=== PATIENT | male | born 1985 | race Caucasian/White ===

== ENCOUNTER 2018-11-30 09:14 | Observation (INO) | payer OTHER ==
[~2018-11-30] VITALS: Ht 182.9 cm; Wt 86.2 kg
[~2018-11-30 09:14] MED LIST: AMOX500 PO; CLON.1 PO; CLON.2; CLON.2 PO; CLON.2TP; CLON.5 PO; CLON1 PO; CYCL10 PO; DIAZ5 PO; HYDACE5 PO; HYDPAM25 PO; IBUP600 PO; IBUP800 PO; Klonopin0.5 MG PO; LORA.5 PO; LORA2 PO; NAPR500 PO; NIAC250ER PO; PENVK250 PO; PROM25 PO; QUET100 PO; QUET300 PO; RXCYCL10 PO; RXHYDACE PO; TRAM50 PO; TRAZ50 PO
[2018-11-30 10:34] LABS: BASOPHILS ABSOLUTE AUTO 0.08 K/mm3 (0.00-0.23); BASOPHILS PERCENT AUTO 1 % (0-2); EOSINOPHILS ABSOLUTE AUTO 0.21 K/mm3 (0.00-0.68); EOSINOPHILS PERCENT AUTO 3 % (0-6); Hematocrit 48.9 % (37.0-53.0); Hemoglobin 16.9 g/dL (13.5-17.5); IMMATURE GRAN ABSOLUTE AUTO 0.01 K/mm3 (0.00-0.10); IMMATURE GRAN PERCENT AUTO 0 % (0-1); LYMPHOCYTES ABSOLUTE AUTO 1.44 K/mm3 (0.84-5.20); LYMPHOCYTES PERCENT AUTO 23 % (21-46); MONOCYTES ABSOLUTE AUTO 0.57 K/mm3 (0.16-1.47); MONOCYTES PERCENT AUTO 9 % (4-13); Mean Corpuscular HGB 30.1 pg (26.0-34.0); Mean Corpuscular HGB Conc 34.6 g/dL (31.5-36.5); Mean Corpuscular Volume 87 fL (80-100); Mean Platelet Volume 11.1 fL (9.1-12.4); NEUTROPHILS ABSOLUTE AUTO 3.99 K/mm3 (1.96-9.15); NEUTROPHILS PERCENT AUTO 63 % (41-73); Platelet Count 205 K/mm3 (150-400); RDW Coefficient Variation 12.4 % (11.7-14.2); RDW Standard Deviation 38.7 fL (35.1-46.3); Red Blood Cell Count 5.62 M/mm3 (4.30-5.90)
[2018-11-30 10:58] LABS: Alanine Aminotransfer (ALT/SGP 42 U/L (12-78); Albumin, Blood 4.6 g/dL (3.4-5.0); Albumin/Globulin Ratio 1.4 (0.8-1.8); Alk Phos 83 U/L (50-136); Anion Gap 8 mmol/L (6-16); Aspartate Aminotrans (AST/SGOT 32 U/L (12-37); Bilirubin, Total 1.3 mg/dL (0.1-1.0); Blood Urea Nitrogen 23 mg/dL (8-24); Bun/Creatinine Ratio 19.8 (12.0-20.0); CO2, Blood 25 mmol/L (21-32); Calcium, Blood 9.1 mg/dL (8.5-10.1); Chloride, Blood 108 mmol/L (98-108); Creatinine, Blood 1.16 mg/dL (0.60-1.20); Ethanol (Alcohol), Blood, Med <3 mg/dL; Globulin, Blood 3.2 g/dL (2.2-4.0); Glomerular Filtration Rate >60 (60-); Glucose, Blood 85 mg/dL (70-99); Salicylate <1.7 mg/dL (2.8-20.0); Sodium, Blood 141 mmol/L (136-145); Total Protein, Blood 7.8 g/dL (6.4-8.2)
[2018-11-30 11:02] LABS: Acetaminophen, Random <2.0 ug/mL (10.0-30.0)
[2018-11-30 19:35] LABS: Source, Urine Clean Catch
[2018-11-30 19:38] LABS: Bilirubin, Urine Neg (Neg); Blood, Urine Neg (Neg); Glucose Qualitative, Urine Neg (Neg); Ketones, Urine 3+ (Neg); Leukocyte Esterase, Urine Neg (Neg); Nitrite, Urine Neg (Neg); Protein, Urine Neg (Neg); Specific Gravity, Urine 1.015 (1.003-1.022); Urobilinogen, Urine NORM (Normal)
[2018-11-30 19:40] LABS: Appearance, Urine Clear (Clear); Color, Urine Yellow (P-Yellow)
[2018-11-30 19:51] LABS: U Amphetamine Screen DETECTED; U Barbituate Screen Not Detected; U Benzodiazapine Screen Not Detected; U Buprenorphine Screen Not Detected; U Cannabinoids Screen Not Detected; U Cocaine Screen Not Detected; U Methadone Screen Not Detected; U Methamphetamine Screen DETECTED; U Opiates Screen Not Detected; U Oxycodone Screen Not Detected; U Phencyclidine Screen Not Detected; U Propoxyphene Screen Not Detected
[2018-12-01] MEDS ORDERED: QUET200 PO (04:48)
[2018-12-01] MEDS ORDERED: Klonopin0.5 MG PO (04:48)
== END 2018-12-01 05:46 | disposition home or self-care (01) ==
LOC: ER 09:14 → EOR 09:15
PROVIDERS: ADMIT Emergency Medicine
DX: F29 Unspecified psychosis not due to a substance or known physiological condition (principal); F15.10 Other stimulant abuse, uncomplicated; F41.9 Anxiety disorder, unspecified; F31.9 Bipolar disorder, unspecified; Z79.899 Other long term (current) drug therapy
CPT/HCPCS: 36415; 80053; 81003; 84443; 85025; 99285; G0378; G0480

== ENCOUNTER 2018-12-19 12:15 | Emergency (ER) | payer OTHER ==
[~2018-12-19] VITALS: Ht 182.9 cm; Wt 90.7 kg
[~2018-12-19 12:15] MED LIST changes: +QUET200 PO
[2018-12-19] MEDS ORDERED: Klonopin0.5 MG PO (13:27)
== END 2018-12-19 13:40 | disposition home or self-care (01) ==
LOC: ER 12:15
DX: Z76.0 Encounter for issue of repeat prescription (principal); Z79.899 Other long term (current) drug therapy; F41.9 Anxiety disorder, unspecified; F31.9 Bipolar disorder, unspecified
CPT/HCPCS: 99281

== ENCOUNTER 2019-01-09 17:18 | Emergency (ER) | payer OTHER ==
[~2019-01-09] VITALS: Ht 182.9 cm; Wt 81.7 kg
[2019-01-09] MEDS ORDERED: Klonopin0.5 MG PO ×2 (17:41→18:31)
[2019-01-09] MEDS ORDERED: QUET200 PO ×2 (17:42→18:05)
[2019-01-09] MEDS ORDERED: Catapres0.1 MG PO (18:05)
== END 2019-01-09 18:35 | disposition home or self-care (01) ==
LOC: ER 17:18
DX: F31.9 Bipolar disorder, unspecified (principal); Z87.891 Personal history of nicotine dependence
CPT/HCPCS: 99283

== ENCOUNTER 2019-03-08 15:27 | Observation (INO) | payer OTHER ==
[~2019-03-08] VITALS: Ht 175.3 cm; Wt 68.0 kg
[~2019-03-08 15:27] MED LIST changes: +Catapres0.1 MG PO
[2019-03-08 17:55] LABS: BASOPHILS ABSOLUTE AUTO 0.05 K/mm3 (0.00-0.23); BASOPHILS PERCENT AUTO 1 % (0-2); EOSINOPHILS ABSOLUTE AUTO 0.08 K/mm3 (0.00-0.68); EOSINOPHILS PERCENT AUTO 1 % (0-6); Hematocrit 46.9 % (37.0-53.0); Hemoglobin 16.3 g/dL (13.5-17.5); IMMATURE GRAN ABSOLUTE AUTO 0.01 K/mm3 (0.00-0.10); IMMATURE GRAN PERCENT AUTO 0 % (0-1); LYMPHOCYTES PERCENT AUTO 26 % (21-46); MONOCYTES ABSOLUTE AUTO 0.73 K/mm3 (0.16-1.47); MONOCYTES PERCENT AUTO 12 % (4-13); Mean Corpuscular HGB 31.4 pg (26.0-34.0); Mean Corpuscular HGB Conc 34.8 g/dL (31.5-36.5); Mean Corpuscular Volume 90 fL (80-100); NEUTROPHILS ABSOLUTE AUTO 3.73 K/mm3 (1.96-9.15); NEUTROPHILS PERCENT AUTO 60 % (41-73); Platelet Count 180 K/mm3 (150-400); RDW Coefficient Variation 12.5 % (11.7-14.2); RDW Standard Deviation 41.2 fL (35.1-46.3); Red Blood Cell Count 5.19 M/mm3 (4.30-5.90)
[2019-03-08 18:21] LABS: Alanine Aminotransfer (ALT/SGP 26 U/L (12-78); Albumin, Blood 4.6 g/dL (3.4-5.0); Albumin/Globulin Ratio 1.4 (0.8-1.8); Alk Phos 63 U/L (50-136); Anion Gap 6 mmol/L (6-16); Aspartate Aminotrans (AST/SGOT 13 U/L (12-37); Bilirubin, Total 1.2 mg/dL (0.1-1.0); Blood Urea Nitrogen 28 mg/dL (8-24); Bun/Creatinine Ratio 25.7 (12.0-20.0); CO2, Blood 30 mmol/L (21-32); Calcium, Blood 9.7 mg/dL (8.5-10.1); Chloride, Blood 103 mmol/L (98-108); Creatinine, Blood 1.09 mg/dL (0.60-1.20); Ethanol (Alcohol), Blood, Med <3 mg/dL; Globulin, Blood 3.2 g/dL (2.2-4.0); Glomerular Filtration Rate >60 (60-); Glucose, Blood 95 mg/dL (70-99); Potassium, Blood 4.1 mmol/L (3.5-5.5); Salicylate <1.7 mg/dL (2.8-20.0); Sodium, Blood 139 mmol/L (136-145); Total Protein, Blood 7.8 g/dL (6.4-8.2)
[2019-03-08 18:30] LABS: Acetaminophen, Random <2.0 ug/mL (10.0-30.0)
[2019-03-09 02:12] LABS: Source, Urine Catheter
[2019-03-09 02:43] LABS: Appearance, Urine Clear (Clear); Bilirubin, Urine Neg (Neg); Blood, Urine Neg (Neg); Color, Urine Yellow (P-Yellow); Glucose Qualitative, Urine Neg (Neg); Ketones, Urine 2+ (Neg); Leukocyte Esterase, Urine Neg (Neg); Nitrite, Urine Neg (Neg); Protein, Urine 1+ (Neg); Specific Gravity, Urine 1.025 (1.003-1.022); Urobilinogen, Urine 1+ (Normal)
[2019-03-09 03:02] LABS: U Amphetamine Screen Not Detected; U Methamphetamine Screen Not Detected
[2019-03-09 03:03] LABS: U Barbituate Screen Not Detected; U Benzodiazapine Screen Not Detected; U Buprenorphine Screen Not Detected; U Cannabinoids Screen Not Detected; U Cocaine Screen Not Detected; U Methadone Screen Not Detected; U Opiates Screen Not Detected; U Oxycodone Screen Not Detected; U Phencyclidine Screen Not Detected; U Propoxyphene Screen Not Detected
[2019-03-10] MEDS ORDERED: Klonopin0.5 MG PO (10:38)
[2019-03-10] MEDS ORDERED: QUET200 PO (10:38)
== END 2019-03-10 10:52 | disposition home or self-care (01) ==
LOC: ER 15:27 → EOR 15:28
PROVIDERS: Physician Assistant; ADMIT Emergency Medicine
DX: F20.2 Catatonic schizophrenia (principal); F31.9 Bipolar disorder, unspecified; F41.9 Anxiety disorder, unspecified; F17.200 Nicotine dependence, unspecified, uncomplicated; G47.00 Insomnia, unspecified; Z91.14 Patient's other noncompliance with medication regimen; Z79.899 Other long term (current) drug therapy
CPT/HCPCS: 36415; 80053; 85025; 99285; G0378; G0480; J2060; Q3014

== ENCOUNTER 2019-03-26 14:31 | Emergency (ER) | payer OTHER ==
[~2019-03-26] VITALS: Ht 182.9 cm; Wt 72.6 kg
[2019-03-26] MEDS ORDERED: QUET200 PO (15:19)
== END 2019-03-26 16:05 | disposition home or self-care (01) ==
LOC: ER 14:31
DX: Z76.0 Encounter for issue of repeat prescription (principal); F41.9 Anxiety disorder, unspecified; G47.00 Insomnia, unspecified; Z87.891 Personal history of nicotine dependence
CPT/HCPCS: 99281

== ENCOUNTER 2019-04-09 11:41 | Emergency (ER) | payer OTHER ==
[~2019-04-09] VITALS: Ht 182.9 cm; Wt 81.7 kg
[2019-04-09] MEDS ORDERED: CLON.1 PO (11:48)
== END 2019-04-09 12:33 | disposition home or self-care (01) ==
LOC: ER 11:41
DX: F41.9 Anxiety disorder, unspecified (principal); Z76.0 Encounter for issue of repeat prescription; F31.9 Bipolar disorder, unspecified; G47.00 Insomnia, unspecified; M54.9 Dorsalgia, unspecified; G89.29 Other chronic pain; Z87.891 Personal history of nicotine dependence
CPT/HCPCS: 99281

== ENCOUNTER 2019-05-27 13:05 | Emergency (ER) | payer OTHER ==
[~2019-05-27] VITALS: Ht 182.9 cm; Wt 86.2 kg
== END 2019-05-27 18:50 | disposition home or self-care (01) ==
LOC: ER 13:05
DX: F29 Unspecified psychosis not due to a substance or known physiological condition (principal); F41.9 Anxiety disorder, unspecified; F17.210 Nicotine dependence, cigarettes, uncomplicated
CPT/HCPCS: 96372; 99283-25; J1200; J1630; J2060

== ENCOUNTER 2019-06-18 14:35 | Emergency (ER) | payer OTHER ==
[~2019-06-18] VITALS: Ht 182.9 cm; Wt 90.7 kg
[2019-06-18] MEDS ORDERED: TRAM50 PO (14:49)
[2019-06-18] MEDS ORDERED: CLON.1 PO (14:49)
== END 2019-06-18 15:12 | disposition home or self-care (01) ==
LOC: ER 14:35
DX: F41.9 Anxiety disorder, unspecified (principal); F31.9 Bipolar disorder, unspecified; G47.00 Insomnia, unspecified; Z87.891 Personal history of nicotine dependence
CPT/HCPCS: 99282

== ENCOUNTER 2019-11-28 20:21 | Emergency (ER) | payer OTHER ==
[~2019-11-28] VITALS: Ht 182.9 cm; Wt 81.7 kg
[~2019-11-28 20:21] MED LIST changes: +BUPR100 PO; +Cleocin HCl300 MG PO
[2019-11-28] MEDS ORDERED: Klonopin0.5 MG PO (20:38)
[2019-11-28] MEDS ORDERED: ACET500 PO (22:27)
[2019-11-28] MEDS ORDERED: KETO10 PO (22:27)
== END 2019-11-28 22:47 | disposition home or self-care (01) ==
LOC: ER 20:21
DX: S02.40FA Zygomatic fracture, left side, initial encounter for closed fracture (principal); S02.842A Fracture of lateral orbital wall, left side, initial encounter for closed fracture; S02.832A Fracture of medial orbital wall, left side, initial encounter for closed fracture; S02.32XA Fracture of orbital floor, left side, initial encounter for closed fracture; S02.40DA Maxillary fracture, left side, initial encounter for closed fracture; S42.135A Nondisplaced fracture of coracoid process, left shoulder, initial encounter for closed fracture; F41.9 Anxiety disorder, unspecified; F31.9 Bipolar disorder, unspecified; Z79.899 Other long term (current) drug therapy; Z87.891 Personal history of nicotine dependence; Y04.2XXA Assault by strike against or bumped into by another person, initial encounter
CPT/HCPCS: 70450; 70486; 99284-25

== ENCOUNTER 2020-02-10 16:01 | Emergency (ER) | payer OTHER ==
[~2020-02-10] VITALS: Ht 182.9 cm; Wt 86.2 kg
[~2020-02-10 16:01] MED LIST changes: +ACET500 PO; +KETO10 PO
[2020-02-10] MEDS ORDERED: Vistaril25 MG PO (19:52)
== END 2020-02-10 17:12 | disposition left against medical advice (07) ==
LOC: ER 16:01
DX: Z53.21 Procedure and treatment not carried out due to patient leaving prior to being seen by health care provider (principal)

== ENCOUNTER 2020-02-10 18:23 | Emergency (ER) | payer OTHER ==
[~2020-02-10] VITALS: Ht 182.9 cm; Wt 81.7 kg
[2020-02-10] MEDS ORDERED: Vistaril25 MG PO (19:52)
== END 2020-02-10 20:05 | disposition home or self-care (01) ==
LOC: ER 18:23
DX: F41.9 Anxiety disorder, unspecified (principal); F31.9 Bipolar disorder, unspecified; Z79.899 Other long term (current) drug therapy; Z87.891 Personal history of nicotine dependence
CPT/HCPCS: 99283

== ENCOUNTER 2020-02-26 15:49 | Emergency (ER) | payer OTHER ==
[~2020-02-26] VITALS: Ht 182.9 cm; Wt 81.7 kg
[~2020-02-26 15:49] MED LIST changes: +Vistaril25 MG PO
[2020-02-26] MEDS ORDERED: Bactrim Ds Tab1 EACH PO (16:21)
[2020-02-26] MEDS ORDERED: CEPH500 PO ×2 (16:21→16:32)
[2020-02-26] MEDS ORDERED: BACTRIM DS TAB1 EAC1 PO (16:32)
== END 2020-02-26 16:44 | disposition home or self-care (01) ==
LOC: ER 15:49
DX: L02.416 Cutaneous abscess of left lower limb (principal); L03.116 Cellulitis of left lower limb; F31.9 Bipolar disorder, unspecified; F41.9 Anxiety disorder, unspecified; Z79.899 Other long term (current) drug therapy; Z87.891 Personal history of nicotine dependence
CPT/HCPCS: 10061; 99283-25; A9270; A9270-GY

== ENCOUNTER 2020-04-02 12:23 | Emergency (ER) | payer OTHER ==
[~2020-04-02] VITALS: Ht 182.9 cm; Wt 72.6 kg
[~2020-04-02 12:23] MED LIST changes: +BACTRIM DS TAB1 EAC1 PO; +Bactrim Ds Tab1 EACH PO; +CEPH500 PO
== END 2020-04-02 13:32 | disposition home or self-care (01) ==
LOC: ER 12:23
DX: T50.901A Poisoning by unspecified drugs, medicaments and biological substances, accidental (unintentional), initial encounter (principal); F17.200 Nicotine dependence, unspecified, uncomplicated; Z53.20 Procedure and treatment not carried out because of patient's decision for unspecified reasons; Z79.899 Other long term (current) drug therapy
CPT/HCPCS: 99285

== ENCOUNTER 2023-05-06 10:42 | Emergency (ER) | payer OTHER ==
[~2023-05-06] VITALS: Ht 182.9 cm; Wt 113.4 kg
[2023-05-06 11:24] VITALS: BP 142/87
[2023-05-06] MEDS ORDERED: Catapres0.1 MG PO (11:55)
[2023-05-06] MEDS ORDERED: Klonopin0.5 MG PO (11:55)
[2023-05-06] MEDS ORDERED: QUET300 PO (11:55)
== END 2023-05-06 12:16 | disposition home or self-care (01) ==
LOC: ER 10:42
DX: Z76.0 Encounter for issue of repeat prescription (principal); F41.9 Anxiety disorder, unspecified; G47.00 Insomnia, unspecified; F31.9 Bipolar disorder, unspecified; Z79.899 Other long term (current) drug therapy
CPT/HCPCS: 99283

== ENCOUNTER 2023-05-29 11:44 | Emergency (ER) | payer OTHER ==
[~2023-05-29] VITALS: Ht 177.8 cm; Wt 99.8 kg
[~2023-05-29 11:44] MED LIST changes: +SUBOXONE 8 MG-1 EACH SL
[2023-05-29 12:12] VITALS: BP 136/98
[2023-05-29] MEDS ORDERED: Buprenorphine HCL/Naloxone HCL 8MG-2MG Tab SL ONE (13:55)
[2023-06-26] MEDS ORDERED: METH40 PO (07:23)
[2023-06-26] MEDS ORDERED: MIRALAX17 GM PO (09:14)
[2023-06-26] MEDS ORDERED: SENNA LAXATIVE8.6 MG PO (09:46)
[2023-06-26] MEDS ORDERED: DOC250 PO (09:46)
[2023-07-14] MEDS ORDERED: ACYC400 PO (15:28)
[2023-07-16] MEDS ORDERED: CEPH500 PO (15:02)
== END 2023-05-29 14:30 | disposition home or self-care (01) ==
LOC: ER 11:44
DX: Z76.0 Encounter for issue of repeat prescription (principal); Z87.891 Personal history of nicotine dependence; G47.00 Insomnia, unspecified; F31.9 Bipolar disorder, unspecified; Z79.899 Other long term (current) drug therapy
CPT/HCPCS: 99281; A9270

== ENCOUNTER 2023-06-10 09:41 | Emergency (ER) | payer OTHER ==
[~2023-06-10] VITALS: Ht 182.9 cm; Wt 79.4 kg
[2023-06-10 09:50] VITALS: BP 138/93
[2023-06-10] MEDS ORDERED: CLON.1 PO (09:53)
[2023-06-26] MEDS ORDERED: METH40 PO (07:23)
[2023-06-26] MEDS ORDERED: MIRALAX17 GM PO (09:14)
[2023-06-26] MEDS ORDERED: SENNA LAXATIVE8.6 MG PO (09:46)
[2023-06-26] MEDS ORDERED: DOC250 PO (09:46)
[2023-07-14] MEDS ORDERED: ACYC400 PO (15:28)
[2023-07-16] MEDS ORDERED: CEPH500 PO (15:02)
== END 2023-06-10 09:53 | disposition home or self-care (01) ==
LOC: ER 09:41
DX: Z76.0 Encounter for issue of repeat prescription (principal); Z79.899 Other long term (current) drug therapy; G47.00 Insomnia, unspecified
CPT/HCPCS: 99281

== ENCOUNTER 2023-08-31 11:19 | Emergency (ER) | payer OTHER ==
[~2023-08-31] VITALS: Ht 182.9 cm; Wt 99.8 kg
[~2023-08-31 11:19] MED LIST changes: +ACYC400 PO; +DOC250 PO; +METH40 PO; +MIRALAX17 GM PO; +SENNA LAXATIVE8.6 MG PO
[2023-08-31 11:34] VITALS: BP 147/98
[2023-08-31] MEDS ORDERED: QUEtiapine Fumarate 300 MG Tab PO ONE (12:30)
== END 2023-08-31 12:57 | disposition home or self-care (01) ==
LOC: ER 11:19
DX: Z76.0 Encounter for issue of repeat prescription (principal); Z87.891 Personal history of nicotine dependence; Z79.899 Other long term (current) drug therapy
CPT/HCPCS: 99281; A9270

== ENCOUNTER 2023-09-24 14:15 | Emergency (ER) | payer OTHER ==
[~2023-09-24] VITALS: Ht 182.9 cm; Wt 104.3 kg
[2023-09-24 15:06] VITALS: BP 108/76
[2023-09-24] MEDS ORDERED: Polyethylene Glycol 3350 17 gm PO ONE (18:00)
[2023-09-24] MEDS ORDERED: MIRALAX17 GM PO (18:03)
== END 2023-09-24 18:20 | disposition home or self-care (01) ==
LOC: ER 14:15
DX: K59.09 Other constipation (principal); F17.290 Nicotine dependence, other tobacco product, uncomplicated; F31.9 Bipolar disorder, unspecified; Z79.899 Other long term (current) drug therapy; Z59.00 Homelessness unspecified
CPT/HCPCS: 74018; 99283-25; A9270

== ENCOUNTER 2023-10-23 11:38 | Emergency (ER) | payer OTHER ==
[~2023-10-23] VITALS: Ht 182.9 cm; Wt 108.9 kg
[2023-10-23 11:53] VITALS: BP 129/95
[2023-10-23] MEDS ORDERED: KLONOPIN0.5 M9 PO (11:57)
[2023-10-23] MEDS ORDERED: [UNRECOGNIZED DRUG - CODE] PO (11:57)
[2023-10-23] MEDS ORDERED: CATAPRES0.1 MG PO (11:57)
[2023-10-23] MEDS ORDERED: Methadone HCL 10 MG TAB PO ONE (12:25)
== END 2023-10-23 12:44 | disposition home or self-care (01) ==
LOC: ER 11:38
DX: Z76.89 Persons encountering health services in other specified circumstances (principal); F31.9 Bipolar disorder, unspecified; F17.290 Nicotine dependence, other tobacco product, uncomplicated; Z79.899 Other long term (current) drug therapy
CPT/HCPCS: A9270

== ENCOUNTER 2023-11-17 10:46 | Emergency (ER) | payer OTHER ==
[~2023-11-17] VITALS: Ht 182.9 cm; Wt 117.9 kg
[~2023-11-17 10:46] MED LIST changes: +CATAPRES0.1 MG PO; +KLONOPIN0.5 M9 PO; +[UNRECOGNIZED DRUG - CODE] PO
[2023-11-17 11:02] VITALS: BP 127/91
[2023-11-17] MEDS ORDERED: Methadone HCL 10 MG TAB PO ONE (11:50)
[2023-11-18] MEDS ORDERED: CATAPRES0.1 MG PO (14:53)
== END 2023-11-17 12:47 | disposition home or self-care (01) ==
LOC: ER 10:46
DX: F11.90 Opioid use, unspecified, uncomplicated (principal); Z76.0 Encounter for issue of repeat prescription; Z87.891 Personal history of nicotine dependence; G47.00 Insomnia, unspecified; Z79.899 Other long term (current) drug therapy
CPT/HCPCS: 99281; A9270

== ENCOUNTER 2023-11-18 14:38 | Emergency (ER) | payer OTHER ==
[~2023-11-18] VITALS: Ht 182.9 cm; Wt 117.9 kg
[2023-11-18 14:49] VITALS: BP 133/69
[2023-11-18] MEDS ORDERED: CATAPRES0.1 MG PO (14:53)
[2023-11-18] MEDS ORDERED: ClonazePAM 0.5 MG Tab PO ONE (14:55)
[2023-11-18] MEDS ORDERED: Methadone HCL 10 MG TAB PO ONE (15:05)
[2023-12-06] MEDS ORDERED: QUET200 PO (16:41)
[2023-12-06] MEDS ORDERED: CATAPRES0.1 MG PO (16:41)
[2024-01-02] MEDS ORDERED: CATAPRES0.2 M1 PO (15:20)
== END 2023-11-18 15:18 | disposition home or self-care (01) ==
LOC: ER 14:38
DX: Z76.0 Encounter for issue of repeat prescription (principal); F11.90 Opioid use, unspecified, uncomplicated; Z79.899 Other long term (current) drug therapy; G47.00 Insomnia, unspecified; Z87.891 Personal history of nicotine dependence
CPT/HCPCS: 99281; A9270

== ENCOUNTER 2023-11-19 13:15 | Emergency (ER) | payer OTHER ==
[~2023-11-19] VITALS: Ht 182.9 cm; Wt 117.9 kg
[2023-11-19 13:35] VITALS: BP 146/81
[2023-11-19] MEDS ORDERED: Methadone HCL 10 MG TAB PO ONE (13:45)
== END 2023-11-19 14:39 | disposition home or self-care (01) ==
LOC: ER 13:15
DX: Z76.89 Persons encountering health services in other specified circumstances (principal); F31.9 Bipolar disorder, unspecified; Z79.899 Other long term (current) drug therapy; Z87.891 Personal history of nicotine dependence
CPT/HCPCS: 99281; A9270

== ENCOUNTER 2023-11-22 15:05 | Emergency (ER) | payer OTHER ==
[~2023-11-22] VITALS: Ht 182.9 cm; Wt 75.8 kg
[2023-11-22 15:20] VITALS: BP 102/57
[2023-11-22] MEDS ORDERED: NS 1,000 ML IV SCH (15:25)
[2023-11-22 16:01] LABS: BASOPHILS PERCENT AUTO 2 % (0-2); EOSINOPHILS ABSOLUTE AUTO 0.44 K/mm3 (0.00-0.68); EOSINOPHILS PERCENT AUTO 7 % (0-6); Hematocrit 41.5 % (37.0-53.0); Hemoglobin 13.8 g/dL (13.5-17.5); IMMATURE GRAN ABSOLUTE AUTO 0.01 K/mm3 (0.00-0.10); IMMATURE GRAN PERCENT AUTO 0 % (0-1); LYMPHOCYTES ABSOLUTE AUTO 2.16 K/mm3 (0.84-5.20); LYMPHOCYTES PERCENT AUTO 36 % (21-46); MONOCYTES ABSOLUTE AUTO 0.49 K/mm3 (0.16-1.47); MONOCYTES PERCENT AUTO 8 % (4-13); Mean Corpuscular HGB 30.1 pg (26.0-34.0); Mean Corpuscular HGB Conc 33.3 g/dL (31.5-36.5); Mean Corpuscular Volume 91 fL (80-100); Mean Platelet Volume 10.9 fL (9.1-12.4); NEUTROPHILS ABSOLUTE AUTO 2.84 K/mm3 (1.96-9.15); NEUTROPHILS PERCENT AUTO 47 % (41-73); Platelet Count 185 K/mm3 (150-400); RDW Coefficient Variation 14.6 % (11.7-14.2); RDW Standard Deviation 48.2 fL (35.1-46.3); Red Blood Cell Count 4.58 M/mm3 (4.30-5.90); White Blood Cell Count 6.04 K/mm3 (4.00-11.30)
[2023-11-22 16:25] LABS: Free Thyroxine 0.76 ng/dL (0.70-1.60)
[2023-11-22 16:30] LABS: pH Blood Venous 7.36 (7.34-7.37)
[2023-11-22 16:31] LABS: Base Excess Venous 5.2 mmol/L; Bicarbonate Venous 27.5 mmol/L (24.0-30.0); PCO2 Venous 54.4 mmHg (38-42)
[2023-11-22 16:37] LABS: Alanine Aminotransfer (ALT/SGP 59 U/L (12-78); Albumin, Blood 3.4 g/dL (3.4-5.0); Albumin/Globulin Ratio 0.9 (0.8-1.8); Alk Phos 105 U/L (50-136); Anion Gap 6 mmol/L (3-11); Aspartate Aminotrans (AST/SGOT 46 U/L (12-37); Beta-hydroxybutyrate 0.4 mg/dL (0.2-2.8); Bilirubin, Total 0.8 mg/dL (0.1-1.0); Blood Urea Nitrogen 11 mg/dL (8-24); Bun/Creatinine Ratio 7.6 (12.0-20.0); CO2, Blood 30 mmol/L (21-32); Calcium, Blood 9.3 mg/dL (8.5-10.1); Chloride, Blood 110 mmol/L (98-108); Creatinine, Blood 1.45 mg/dL (0.60-1.20); Globulin, Blood 3.8 g/dL (2.2-4.0); Glomerular Filtration Rate 63 (60-); Glucose, Blood 101 mg/dL (70-99); Potassium, Blood 3.4 mmol/L (3.5-5.5); Sodium, Blood 143 mmol/L (136-145); Total Protein, Blood 7.2 g/dL (6.4-8.2)
[2023-11-22 16:38] LABS: Ethanol (Alcohol), Blood, Med <3 mg/dL
== END 2023-11-22 18:44 | disposition home or self-care (01) ==
LOC: ER 15:05
PROVIDERS: Emergency Medicine
DX: G93.40 Encephalopathy, unspecified (principal); F15.10 Other stimulant abuse, uncomplicated; F12.10 Cannabis abuse, uncomplicated; Z87.891 Personal history of nicotine dependence; G47.00 Insomnia, unspecified; Z79.899 Other long term (current) drug therapy
CPT/HCPCS: 70450; 71045; 80053; 80320; 82010; 82140; 82803; 84439; 84443; 85025; 93005; 93010; 96360; 96361; 99285-25; J7030

== ENCOUNTER 2023-11-29 12:37 | Emergency (ER) | payer OTHER ==
[~2023-11-29] VITALS: Ht 182.9 cm; Wt 117.9 kg
[2023-11-29 12:50] VITALS: BP 189/107
[2023-11-29] MEDS ORDERED: Catapres0.1 MG PO (13:49)
[2023-11-29] MEDS ORDERED: QUETIAPINE FUM400 M2 PO (13:49)
[2023-12-06] MEDS ORDERED: QUET200 PO (16:41)
[2023-12-06] MEDS ORDERED: CATAPRES0.1 MG PO (16:41)
== END 2023-11-29 13:52 | disposition home or self-care (01) ==
LOC: ER 12:37
DX: Z76.0 Encounter for issue of repeat prescription (principal); G47.00 Insomnia, unspecified; Z87.891 Personal history of nicotine dependence; Z79.899 Other long term (current) drug therapy
CPT/HCPCS: 99281

== ENCOUNTER 2023-12-16 13:45 | Emergency (ER) | payer OTHER ==
[~2023-12-16] VITALS: Ht 182.9 cm; Wt 113.4 kg
[~2023-12-16 13:45] MED LIST changes: +QUETIAPINE FUM400 M2 PO
[2023-12-16 13:49] VITALS: BP 142/93
[2023-12-16] MEDS ORDERED: QUETIAPINE FUM400 M2 PO (15:31)
[2023-12-16] MEDS ORDERED: Catapres0.1 MG PO (15:31)
[2023-12-16] MEDS ORDERED: Klonopin0.5 MG PO (15:31)
== END 2023-12-16 15:45 | disposition home or self-care (01) ==
LOC: ER 13:45
DX: Z76.0 Encounter for issue of repeat prescription (principal); F31.9 Bipolar disorder, unspecified; F41.9 Anxiety disorder, unspecified; G47.00 Insomnia, unspecified; Z79.899 Other long term (current) drug therapy
CPT/HCPCS: 99281

== ENCOUNTER 2023-12-24 17:08 | Emergency (ER) | payer OTHER ==
[~2023-12-24] VITALS: Ht 182.9 cm; Wt 117.9 kg
[2023-12-24 17:14] VITALS: BP 124/86
[2023-12-24] MEDS ORDERED: Ibuprofen 400 MG Tab PO ONE (18:35)
== END 2023-12-24 18:50 | disposition home or self-care (01) ==
LOC: ER 17:08
DX: Z76.0 Encounter for issue of repeat prescription (principal); F31.9 Bipolar disorder, unspecified; F41.9 Anxiety disorder, unspecified; F17.290 Nicotine dependence, other tobacco product, uncomplicated; Z79.899 Other long term (current) drug therapy
CPT/HCPCS: 99281; A9270

== ENCOUNTER 2023-12-31 03:45 | Emergency (ER) | payer OTHER ==
[~2023-12-31] VITALS: Ht 182.9 cm; Wt 113.4 kg
[2023-12-31 06:00] VITALS: BP 140/93
[2023-12-31] MEDS ORDERED: CATAPRES0.2 M1 PO (06:24)
[2023-12-31] MEDS ORDERED: QUETIAPINE FUM400 M2 PO (06:24)
[2023-12-31] MEDS ORDERED: CloNIDine 0.1 MG Tab PO ONE (06:25)
[2024-01-02] MEDS ORDERED: CATAPRES0.2 M1 PO (15:20)
[2024-01-19] MEDS ORDERED: MIRALAX17 GM PO (08:45)
[2024-01-19] MEDS ORDERED: CATAPRES0.1 MG PO (08:45)
[2024-01-19] MEDS ORDERED: QUET300 PO (08:45)
== END 2023-12-31 06:41 | disposition home or self-care (01) ==
LOC: ER 03:45
DX: Z76.0 Encounter for issue of repeat prescription (principal); G47.00 Insomnia, unspecified; F17.290 Nicotine dependence, other tobacco product, uncomplicated; Z79.899 Other long term (current) drug therapy
CPT/HCPCS: 99281; A9270

== ENCOUNTER 2024-01-01 18:07 | Emergency (ER) | payer OTHER ==
[~2024-01-01] VITALS: Ht 182.9 cm; Wt 117.9 kg
[~2024-01-01 18:07] MED LIST changes: +CATAPRES0.2 M1 PO
[2024-01-01] MEDS ORDERED: CloNIDine 0.1 MG Tab PO ONE (20:35)
[2024-01-01] MEDS ORDERED: QUEtiapine Fumarate 200 MG Tab PO ONE (20:35)
[2024-01-01] MEDS ORDERED: ClonazePAM 0.5 MG Tab PO ONE (20:35)
[2024-01-01 22:45] VITALS: BP 132/84
[2024-01-02] MEDS ORDERED: CATAPRES0.2 M1 PO (15:20)
== END 2024-01-01 23:00 | disposition home or self-care (01) ==
LOC: ER 18:07
DX: F41.9 Anxiety disorder, unspecified (principal); Z76.0 Encounter for issue of repeat prescription; F17.290 Nicotine dependence, other tobacco product, uncomplicated; Z79.899 Other long term (current) drug therapy
CPT/HCPCS: 99284; A9270

== ENCOUNTER 2024-01-02 11:35 | Emergency (ER) | payer OTHER ==
[~2024-01-02] VITALS: Ht 182.9 cm; Wt 113.4 kg
[2024-01-02 12:46] VITALS: BP 108/73
[2024-01-02] MEDS ORDERED: CloNIDine 0.1 MG Tab PO ONE (12:50)
[2024-01-02] MEDS ORDERED: ClonazePAM 0.5 MG Tab PO ONE (12:50)
[2024-01-02] MEDS ORDERED: CATAPRES0.2 M1 PO ×2 (15:20)
[2024-01-02] MEDS ORDERED: QUETIAPINE FUM400 M2 PO (15:21)
== END 2024-01-02 13:51 | disposition home or self-care (01) ==
LOC: ER 11:35
DX: F41.9 Anxiety disorder, unspecified (principal); Z76.0 Encounter for issue of repeat prescription; G47.00 Insomnia, unspecified; F17.290 Nicotine dependence, other tobacco product, uncomplicated; Z79.899 Other long term (current) drug therapy
CPT/HCPCS: 99283; A9270

== ENCOUNTER 2024-01-03 11:14 | Emergency (ER) | payer OTHER ==
[~2024-01-03] VITALS: Ht 177.8 cm; Wt 104.3 kg
[2024-01-03] MEDS ORDERED: NS 1,000 ML IV SCH (11:35)
[2024-01-03 11:58] LABS: BASOPHILS ABSOLUTE AUTO 0.04 K/mm3 (0.00-0.23); BASOPHILS PERCENT AUTO 1 % (0-2); EOSINOPHILS ABSOLUTE AUTO 0.08 K/mm3 (0.00-0.68); EOSINOPHILS PERCENT AUTO 1 % (0-6); Hematocrit 39.7 % (37.0-53.0); Hemoglobin 13.8 g/dL (13.5-17.5); IMMATURE GRAN ABSOLUTE AUTO 0.02 K/mm3 (0.00-0.10); IMMATURE GRAN PERCENT AUTO 0 % (0-1); LYMPHOCYTES ABSOLUTE AUTO 1.39 K/mm3 (0.84-5.20); LYMPHOCYTES PERCENT AUTO 17 % (21-46); MONOCYTES ABSOLUTE AUTO 0.39 K/mm3 (0.16-1.47); MONOCYTES PERCENT AUTO 5 % (4-13); Mean Corpuscular HGB 30.4 pg (26.0-34.0); Mean Corpuscular HGB Conc 34.8 g/dL (31.5-36.5); Mean Corpuscular Volume 87 fL (80-100); Mean Platelet Volume 11.1 fL (9.1-12.4); NEUTROPHILS ABSOLUTE AUTO 6.27 K/mm3 (1.96-9.15); NEUTROPHILS PERCENT AUTO 77 % (41-73); Platelet Count 218 K/mm3 (150-400); RDW Coefficient Variation 13.7 % (11.7-14.2); RDW Standard Deviation 43.8 fL (35.1-46.3); Red Blood Cell Count 4.54 M/mm3 (4.30-5.90); White Blood Cell Count 8.19 K/mm3 (4.00-11.30)
[2024-01-03 12:20] LABS: Alanine Aminotransfer (ALT/SGP 59 U/L (12-78); Albumin, Blood 3.5 g/dL (3.4-5.0); Alk Phos 91 U/L (50-136); Anion Gap 10 mmol/L (3-11); Aspartate Aminotrans (AST/SGOT 36 U/L (12-37); Bilirubin, Total 0.7 mg/dL (0.1-1.0); Blood Urea Nitrogen 16 mg/dL (8-24); Bun/Creatinine Ratio 13.3 (12.0-20.0); CO2, Blood 25 mmol/L (21-32); Calcium, Blood 9.5 mg/dL (8.5-10.1); Chloride, Blood 109 mmol/L (98-108); Free Thyroxine 1.13 ng/dL (0.70-1.60); Globulin, Blood 3.5 g/dL (2.2-4.0); Glomerular Filtration Rate 79 (60-); Glucose, Blood 148 mg/dL (70-99); Potassium, Blood 3.4 mmol/L (3.5-5.5); Salicylate <1.7 mg/dL (2.8-20.0); Sodium, Blood 141 mmol/L (136-145)
[2024-01-03 12:21] LABS: Acetaminophen, Random <2.0 ug/mL (10.0-30.0); Ethanol (Alcohol), Blood, Med <3 mg/dL
[2024-01-03 15:30] VITALS: BP 108/64
[2024-01-03 16:00] LABS: U Amphetamine Screen DETECTED; U Barbituate Screen Not Detected; U Benzodiazapine Screen Not Detected; U Buprenorphine Screen DETECTED; U Cannabinoids Screen Not Detected; U Cocaine Screen Not Detected; U Methadone Screen DETECTED; U Methamphetamine Screen DETECTED; U Opiates Screen DETECTED; U Oxycodone Screen Not Detected; U Phencyclidine Screen Not Detected
== END 2024-01-03 15:33 | disposition home or self-care (01) ==
LOC: ER 11:14
PROVIDERS: Physician Assistant
DX: T43.591A Poisoning by other antipsychotics and neuroleptics, accidental (unintentional), initial encounter (principal); T46.5X1A Poisoning by other antihypertensive drugs, accidental (unintentional), initial encounter; G47.00 Insomnia, unspecified; Z79.899 Other long term (current) drug therapy
CPT/HCPCS: 80053; 80320; 84439; 84443; 85025; 93005; 93010; 96360; 96361; 99284-25; G0480; J7030

== ENCOUNTER 2024-01-03 22:04 | Emergency (ER) | payer OTHER ==
[~2024-01-03] VITALS: Ht 182.9 cm; Wt 113.4 kg
[2024-01-04 05:10] VITALS: BP 133/72
[2024-01-04] MEDS ORDERED: Methadone HCL 10 MG TAB PO ONE (05:15)
[2024-01-04] MEDS ORDERED: Polyethylene Glycol 3350 17 gm PO ONE (05:20)
== END 2024-01-04 05:22 | disposition home or self-care (01) ==
LOC: ER 22:04
DX: Z76.0 Encounter for issue of repeat prescription (principal); F17.290 Nicotine dependence, other tobacco product, uncomplicated; G47.00 Insomnia, unspecified; Z79.899 Other long term (current) drug therapy
CPT/HCPCS: 99281; A9270

== ENCOUNTER 2024-01-05 12:35 | Observation (INO) | payer OTHER ==
[~2024-01-05] VITALS: Ht 188 cm; Wt 113.4 kg
[2024-01-05] MEDS ORDERED: NS 1,000 ML IV SCH (12:55)
[2024-01-05 14:15] LABS: BASOPHILS ABSOLUTE AUTO 0.08 K/mm3 (0.00-0.23); BASOPHILS PERCENT AUTO 1 % (0-2); EOSINOPHILS PERCENT AUTO 3 % (0-6); Hematocrit 39.9 % (37.0-53.0); Hemoglobin 13.5 g/dL (13.5-17.5); IMMATURE GRAN ABSOLUTE AUTO 0.01 K/mm3 (0.00-0.10); IMMATURE GRAN PERCENT AUTO 0 % (0-1); LYMPHOCYTES ABSOLUTE AUTO 1.85 K/mm3 (0.84-5.20); LYMPHOCYTES PERCENT AUTO 32 % (21-46); MONOCYTES PERCENT AUTO 7 % (4-13); Mean Corpuscular HGB 30.3 pg (26.0-34.0); Mean Corpuscular HGB Conc 33.8 g/dL (31.5-36.5); Mean Corpuscular Volume 90 fL (80-100); Mean Platelet Volume 11.4 fL (9.1-12.4); NEUTROPHILS ABSOLUTE AUTO 3.27 K/mm3 (1.96-9.15); NEUTROPHILS PERCENT AUTO 56 % (41-73); Platelet Count 211 K/mm3 (150-400); RDW Coefficient Variation 13.8 % (11.7-14.2); Red Blood Cell Count 4.46 M/mm3 (4.30-5.90); White Blood Cell Count 5.81 K/mm3 (4.00-11.30)
[2024-01-05 14:18] LABS: Acetaminophen, Random <2.0 ug/mL (10.0-30.0); Alanine Aminotransfer (ALT/SGP 42 U/L (12-78); Albumin, Blood 3.1 g/dL (3.4-5.0); Alk Phos 75 U/L (50-136); Anion Gap 8 mmol/L (3-11); Aspartate Aminotrans (AST/SGOT 27 U/L (12-37); Bilirubin, Total 0.3 mg/dL (0.1-1.0); Blood Urea Nitrogen 9 mg/dL (8-24); Bun/Creatinine Ratio 9.1 (12.0-20.0); CO2, Blood 27 mmol/L (21-32); Calcium, Blood 8.7 mg/dL (8.5-10.1); Chloride, Blood 112 mmol/L (98-108); Creatinine, Blood 0.99 mg/dL (0.60-1.20); Ethanol (Alcohol), Blood, Med <3 mg/dL; Globulin, Blood 3.2 g/dL (2.2-4.0); Glomerular Filtration Rate 99 (60-); Glucose, Blood 125 mg/dL (70-99); Potassium, Blood 3.5 mmol/L (3.5-5.5); Salicylate <1.7 mg/dL (2.8-20.0); Sodium, Blood 143 mmol/L (136-145); Total Protein, Blood 6.3 g/dL (6.4-8.2)
[2024-01-05 16:33] LABS: Influenza A, PCR NEGATIVE (NEGATIVE); Influenza B, PCR NEGATIVE (NEGATIVE); Resp Syncytial Virus, PCR NEGATIVE (NEGATIVE); SARS-Cov-2 (COVID-19) PCR, MMC NEGATIVE (NEGATIVE)
[2024-01-05 16:45] VITALS: BP 107/60
== END 2024-01-05 18:00 | disposition home or self-care (01) ==
LOC: ER 12:35 → EOR 12:36
PROVIDERS: ADMIT Emergency Medicine
DX: F32.9 Major depressive disorder, single episode, unspecified (principal); F11.20 Opioid dependence, uncomplicated; F13.10 Sedative, hypnotic or anxiolytic abuse, uncomplicated; Z79.899 Other long term (current) drug therapy
CPT/HCPCS: 0241U; 80053; 80320; 85025; 86592; 96360; 96361; 99285-25; G0378; G0480; J7030

== ENCOUNTER 2024-01-18 16:05 | Emergency (ER) | payer OTHER ==
[~2024-01-18] VITALS: Ht 182.9 cm; Wt 117.9 kg
[2024-01-18] MEDS ORDERED: Methadone HCL 10 MG TAB PO ONE (16:15)
[2024-01-18 17:07] VITALS: BP 144/88
[2024-01-19] MEDS ORDERED: MIRALAX17 GM PO (08:45)
[2024-01-19] MEDS ORDERED: QUET300 PO (08:45)
[2024-01-19] MEDS ORDERED: CATAPRES0.1 MG PO (08:45)
== END 2024-01-18 18:02 | disposition home or self-care (01) ==
LOC: ER 16:05
DX: F11.90 Opioid use, unspecified, uncomplicated (principal); G47.00 Insomnia, unspecified; Z76.0 Encounter for issue of repeat prescription; Z87.891 Personal history of nicotine dependence; Z79.899 Other long term (current) drug therapy
CPT/HCPCS: 99281

== ENCOUNTER 2024-01-19 05:29 | Emergency (ER) | payer OTHER ==
[~2024-01-19] VITALS: Ht 182.9 cm; Wt 90.7 kg
[2024-01-19 05:41] VITALS: BP 132/82
[2024-01-19] MEDS ORDERED: MIRALAX17 GM PO ×2 (08:45→08:51)
[2024-01-19] MEDS ORDERED: QUET300 PO ×2 (08:45→08:51)
[2024-01-19] MEDS ORDERED: CATAPRES0.1 MG PO ×2 (08:45→08:51)
== END 2024-01-19 08:53 | disposition home or self-care (01) ==
LOC: ER 05:29
DX: Z76.0 Encounter for issue of repeat prescription (principal); K59.00 Constipation, unspecified; F17.290 Nicotine dependence, other tobacco product, uncomplicated; Z79.891 Long term (current) use of opiate analgesic; Z79.899 Other long term (current) drug therapy
CPT/HCPCS: 99282

== ENCOUNTER 2024-01-22 07:00 | Emergency (ER) | payer OTHER ==
[~2024-01-22] VITALS: Ht 182.9 cm; Wt 90.7 kg
[2024-01-22 09:23] VITALS: BP 140/72
[2024-01-22] MEDS ORDERED: CATAPRES0.1 MG PO (09:30)
[2024-01-22] MEDS ORDERED: Seroquel Xr300 MG PO (09:30)
== END 2024-01-22 09:30 | disposition home or self-care (01) ==
LOC: ER 07:00
DX: Z76.0 Encounter for issue of repeat prescription (principal); F19.10 Other psychoactive substance abuse, uncomplicated; F31.9 Bipolar disorder, unspecified; F17.200 Nicotine dependence, unspecified, uncomplicated
CPT/HCPCS: 99281

== ENCOUNTER 2024-01-22 13:17 | Emergency (ER) | payer OTHER ==
[~2024-01-22] VITALS: Ht 182.9 cm; Wt 68.0 kg
[~2024-01-22 13:17] MED LIST changes: +Seroquel Xr300 MG PO
[2024-01-22 13:40] VITALS: BP 138/87
[2024-01-22] MEDS ORDERED: Methadone HCL 10 MG TAB PO ONE (14:00)
== END 2024-01-22 14:28 | disposition home or self-care (01) ==
LOC: ER 13:17
DX: Z76.0 Encounter for issue of repeat prescription (principal); F17.200 Nicotine dependence, unspecified, uncomplicated; Z59.6 Low income
CPT/HCPCS: 99281; A9270

== ENCOUNTER 2024-01-28 05:28 | Emergency (ER) | payer OTHER ==
[~2024-01-28] VITALS: Ht 182.9 cm; Wt 113.4 kg
[2024-01-28] MEDS ORDERED: METH10 PO (05:44)
[2024-01-28] MEDS ORDERED: QUET300 PO (05:57)
[2024-01-28] MEDS ORDERED: CATAPRES0.1 MG PO (05:57)
[2024-01-28] MEDS ORDERED: MIRALAX17 GM PO (05:58)
[2024-01-28 06:00] VITALS: BP 139/77
== END 2024-01-28 06:24 | disposition home or self-care (01) ==
LOC: ER 05:28
DX: K59.00 Constipation, unspecified (principal); Z76.0 Encounter for issue of repeat prescription; F17.290 Nicotine dependence, other tobacco product, uncomplicated; Z79.899 Other long term (current) drug therapy
CPT/HCPCS: 74018; 99283-25

== ENCOUNTER 2024-01-29 10:57 | Emergency (ER) | payer OTHER ==
[~2024-01-29] VITALS: Ht 182.9 cm; Wt 113.4 kg
[~2024-01-29 10:57] MED LIST changes: +METH10 PO
[2024-01-29 11:21] VITALS: BP 151/104
[2024-01-29] MEDS ORDERED: Methadone HCL 10 MG TAB PO ONE (11:35)
== END 2024-01-29 12:59 | disposition home or self-care (01) ==
LOC: ER 10:57
DX: Z76.89 Persons encountering health services in other specified circumstances (principal); F31.9 Bipolar disorder, unspecified; F17.290 Nicotine dependence, other tobacco product, uncomplicated; Z79.899 Other long term (current) drug therapy
CPT/HCPCS: 99281; A9270

== ENCOUNTER 2024-01-31 12:58 | Emergency (ER) | payer OTHER ==
[~2024-01-31] VITALS: Ht 182.9 cm; Wt 113.4 kg
[2024-01-31 13:06] VITALS: BP 131/87
[2024-01-31] MEDS ORDERED: Methadone HCL 10 MG TAB PO ONE (13:55)
== END 2024-01-31 14:00 | disposition home or self-care (01) ==
LOC: ER 12:58
DX: Z76.89 Persons encountering health services in other specified circumstances (principal); Z76.0 Encounter for issue of repeat prescription; F11.10 Opioid abuse, uncomplicated; F17.200 Nicotine dependence, unspecified, uncomplicated
CPT/HCPCS: 99281; A9270

== ENCOUNTER 2024-02-01 15:10 | Emergency (ER) | payer OTHER ==
[~2024-02-01] VITALS: Ht 182.9 cm; Wt 81.7 kg
[2024-02-01 15:37] VITALS: BP 138/71
== END 2024-02-01 16:21 | disposition home or self-care (01) ==
LOC: ER 15:10
DX: Z76.0 Encounter for issue of repeat prescription (principal); F17.290 Nicotine dependence, other tobacco product, uncomplicated; Z79.899 Other long term (current) drug therapy
CPT/HCPCS: 99281

== ENCOUNTER 2024-02-03 10:03 | Emergency (ER) | payer OTHER ==
[~2024-02-03] VITALS: Ht 182.9 cm; Wt 81.7 kg
[2024-02-03 11:45] VITALS: BP 123/79
[2024-02-03] MEDS ORDERED: ALEVAZOL56.7 G1 TOP (11:51)
== END 2024-02-03 13:40 ==
LOC: ER 10:03
DX: B35.3 Tinea pedis (principal); S90.822A Blister (nonthermal), left foot, initial encounter; S90.821A Blister (nonthermal), right foot, initial encounter; F17.290 Nicotine dependence, other tobacco product, uncomplicated; Z79.899 Other long term (current) drug therapy; Z59.89 Other problems related to housing and economic circumstances; X58.XXXA Exposure to other specified factors, initial encounter
CPT/HCPCS: 99282

== ENCOUNTER 2024-03-03 14:11 | Emergency (ER) | payer OTHER ==
[~2024-03-03] VITALS: Ht 182.9 cm; Wt 95.2 kg
[~2024-03-03 14:11] MED LIST changes: +ALEVAZOL56.7 G1 TOP
[2024-03-03 14:28] VITALS: BP 108/97
[2024-03-03] MEDS ORDERED: Colace100 MG PO (15:20)
[2024-03-03] MEDS ORDERED: MIRALAX119 G2 PO (15:20)
== END 2024-03-03 15:20 | disposition home or self-care (01) ==
LOC: ER 14:11
DX: K59.00 Constipation, unspecified (principal); F17.200 Nicotine dependence, unspecified, uncomplicated; Z79.891 Long term (current) use of opiate analgesic; Z79.899 Other long term (current) drug therapy
CPT/HCPCS: 99282

== ENCOUNTER 2024-03-16 10:02 | Emergency (ER) | payer OTHER ==
[~2024-03-16] VITALS: Ht 182.9 cm; Wt 99.8 kg
[~2024-03-16 10:02] MED LIST changes: +Colace100 MG PO; +MIRALAX119 G2 PO
[2024-03-16 10:41] VITALS: BP 129/61
[2024-03-16] MEDS ORDERED: LORazepam 1 MG Tab PO ONE (11:30)
== END 2024-03-16 12:41 | disposition home or self-care (01) ==
LOC: ER 10:02
DX: F41.9 Anxiety disorder, unspecified (principal); F17.200 Nicotine dependence, unspecified, uncomplicated; Z59.89 Other problems related to housing and economic circumstances
CPT/HCPCS: 99283; A9270

== ENCOUNTER 2024-03-19 17:57 | Emergency (ER) | payer OTHER ==
[~2024-03-19] VITALS: Ht 182.9 cm; Wt 95.2 kg
[2024-03-19 18:11] VITALS: BP 146/91
[2024-03-19 19:10] LABS: BASOPHILS ABSOLUTE AUTO 0.06 K/mm3 (0.00-0.23); BASOPHILS PERCENT AUTO 1 % (0-2); EOSINOPHILS PERCENT AUTO 4 % (0-6); Hematocrit 41.5 % (37.0-53.0); Hemoglobin 13.7 g/dL (13.5-17.5); IMMATURE GRAN ABSOLUTE AUTO 0.01 K/mm3 (0.00-0.10); IMMATURE GRAN PERCENT AUTO 0 % (0-1); LYMPHOCYTES PERCENT AUTO 31 % (21-46); MONOCYTES ABSOLUTE AUTO 0.42 K/mm3 (0.16-1.47); MONOCYTES PERCENT AUTO 8 % (4-13); Mean Corpuscular Volume 91 fL (80-100); Mean Platelet Volume 10.4 fL (9.1-12.4); NEUTROPHILS ABSOLUTE AUTO 2.83 K/mm3 (1.96-9.15); NEUTROPHILS PERCENT AUTO 55 % (41-73); Platelet Count 215 K/mm3 (150-400); RDW Coefficient Variation 13.2 % (11.7-14.2); RDW Standard Deviation 43.8 fL (35.1-46.3); Red Blood Cell Count 4.56 M/mm3 (4.30-5.90); White Blood Cell Count 5.12 K/mm3 (4.00-11.30)
[2024-03-19 19:18] LABS: Albumin, Blood 3.4 g/dL (3.4-5.0); Albumin/Globulin Ratio 0.9 (0.8-1.8); Bilirubin, Total 0.4 mg/dL (0.1-1.0); Bun/Creatinine Ratio 14.3 (12.0-20.0); Calcium, Blood 9.2 mg/dL (8.5-10.1); Creatinine, Blood 0.91 mg/dL (0.60-1.20); Globulin, Blood 3.6 g/dL (2.2-4.0); Potassium, Blood 3.7 mmol/L (3.5-5.5)
[2024-03-19] MEDS ORDERED: HyDROXyzine HCl 25 MG Tab PO ONE (20:10)
[2024-03-19] MEDS ORDERED: CATAPRES0.2 M1 PO (23:32)
[2024-03-19] MEDS ORDERED: QUETIAPINE FUM200 M7 PO (23:33)
== END 2024-03-19 20:19 | disposition home or self-care (01) ==
LOC: ER 17:57
PROVIDERS: Student in an Organized Health Care Education/Training Program
DX: F41.9 Anxiety disorder, unspecified (principal); F17.290 Nicotine dependence, other tobacco product, uncomplicated; G47.00 Insomnia, unspecified; Z79.899 Other long term (current) drug therapy
CPT/HCPCS: 80053; 85025; 93005; 93010; 99283-25; A9270

== ENCOUNTER 2024-03-19 23:04 | Emergency (ER) | payer OTHER ==
[~2024-03-19] VITALS: Ht 182.9 cm; Wt 95.2 kg
[2024-03-19 23:29] VITALS: BP 140/87
[2024-03-19] MEDS ORDERED: CATAPRES0.2 M1 PO (23:32)
[2024-03-19] MEDS ORDERED: QUETIAPINE FUM200 M7 PO (23:33)
[2024-03-20] MEDS ORDERED: LORazepam 1 MG Tab PO ONE (03:30)
== END 2024-03-20 03:37 | disposition home or self-care (01) ==
LOC: ER 23:04
DX: F41.9 Anxiety disorder, unspecified (principal); F17.290 Nicotine dependence, other tobacco product, uncomplicated; Z79.899 Other long term (current) drug therapy
CPT/HCPCS: 99282; A9270

== ENCOUNTER 2024-04-05 17:18 | Emergency (ER) | payer OTHER ==
[~2024-04-05] VITALS: Ht 188 cm; Wt 99.8 kg
[~2024-04-05 17:18] MED LIST changes: +QUETIAPINE FUM200 M7 PO
[2024-04-05 17:51] VITALS: BP 117/97
== END 2024-04-05 17:57 | disposition home or self-care (01) ==
LOC: ER 17:18
DX: F17.200 Nicotine dependence, unspecified, uncomplicated (principal); Z76.0 Encounter for issue of repeat prescription
CPT/HCPCS: 99281

== ENCOUNTER 2024-04-12 17:58 | Emergency (ER) | payer OTHER ==
[~2024-04-12] VITALS: Ht 182.9 cm; Wt 104.3 kg
[2024-04-12 18:58] VITALS: BP 143/81
[2024-04-12] MEDS ORDERED: QUEtiapine Fumarate 200 MG Tab PO ONE (19:05)
[2024-04-12] MEDS ORDERED: ClonazePAM 0.5 MG Tab PO ONE (19:05)
[2024-04-12] MEDS ORDERED: CLON.2 PO (19:10)
[2024-04-12] MEDS ORDERED: QUETIAPINE FUM400 M3 PO (19:10)
== END 2024-04-12 19:36 | disposition home or self-care (01) ==
LOC: ER 17:58
DX: G47.00 Insomnia, unspecified (principal); F31.9 Bipolar disorder, unspecified; F17.290 Nicotine dependence, other tobacco product, uncomplicated; Z79.899 Other long term (current) drug therapy
CPT/HCPCS: 99282; A9270

== ENCOUNTER 2024-06-19 02:24 | Emergency (ER) | payer OTHER ==
[~2024-06-19] VITALS: Ht 182.9 cm; Wt 95.2 kg
[~2024-06-19 02:24] MED LIST changes: +QUETIAPINE FUM400 M3 PO
[2024-06-19 02:30] VITALS: BP 146/101
[2024-06-19] MEDS ORDERED: QUEtiapine Fumarate 25 MG Tab PO ONE (02:55)
[2024-06-19] MEDS ORDERED: ClonazePAM 1 MG Tab PO ONE ×2 (03:10)
[2024-06-19] MEDS ORDERED: QUEtiapine Fumarate 300 MG Tab PO ONE (03:20)
[2024-06-19] MEDS ORDERED: Trimethoprim/Sulfamethoxazole DS Tab PO ONE (03:25)
[2024-06-19] MEDS ORDERED: SULTRIDS PO (03:25)
[2024-06-19] MEDS ORDERED: Diphth,Pertuss(Acell),Tet Vac 0.5 ML VIAL IM ONE (03:25)
== END 2024-06-19 03:51 | disposition other institution (70) ==
LOC: ER 02:24
DX: F41.9 Anxiety disorder, unspecified (principal); Z76.0 Encounter for issue of repeat prescription; G47.00 Insomnia, unspecified; L03.90 Cellulitis, unspecified; F17.290 Nicotine dependence, other tobacco product, uncomplicated; F11.90 Opioid use, unspecified, uncomplicated; F17.200 Nicotine dependence, unspecified, uncomplicated; Z79.899 Other long term (current) drug therapy; Z76.89 Persons encountering health services in other specified circumstances
CPT/HCPCS: 90471; 90715; 99281; 99281-25; A9270

== ENCOUNTER 2024-06-19 14:36 | Emergency (ER) | payer OTHER ==
[~2024-06-19] VITALS: Ht 182.9 cm; Wt 98.9 kg
[~2024-06-19 14:36] MED LIST changes: +SULTRIDS PO
[2024-06-19 15:00] VITALS: BP 202/136
[2024-06-19] MEDS ORDERED: Methadone HCL 10 MG TAB PO ONE (15:55)
== END 2024-06-19 16:47 | disposition home or self-care (01) ==
LOC: ER 14:36
DX: Z76.89 Persons encountering health services in other specified circumstances (principal); F11.90 Opioid use, unspecified, uncomplicated; F17.200 Nicotine dependence, unspecified, uncomplicated; Z79.899 Other long term (current) drug therapy
CPT/HCPCS: A9270

== ENCOUNTER 2024-07-05 13:12 | Emergency (ER) | payer OTHER ==
[~2024-07-05] VITALS: Ht 182.9 cm; Wt 93.0 kg
[2024-07-05 13:29] VITALS: BP 111/70
[2024-07-05] MEDS ORDERED: Methadone HCL 10 MG TAB PO ONE (14:00)
== END 2024-07-05 14:33 | disposition home or self-care (01) ==
LOC: ER 13:12
DX: F11.91 Opioid use, unspecified, in remission (principal); Z76.0 Encounter for issue of repeat prescription; G47.00 Insomnia, unspecified
CPT/HCPCS: 99281; A9270

== ENCOUNTER 2024-07-09 13:45 | Emergency (ER) | payer OTHER ==
[~2024-07-09] VITALS: Ht 182.9 cm; Wt 95.2 kg
[2024-07-09 14:23] VITALS: BP 129/77
[2024-07-09] MEDS ORDERED: Ibuprofen 400 MG Tab PO ONE (14:25)
[2024-07-10] MEDS ORDERED: IBUP800 PO (13:34)
== END 2024-07-09 15:13 | disposition home or self-care (01) ==
LOC: ER 13:45
DX: S60.222A Contusion of left hand, initial encounter (principal); S60.221A Contusion of right hand, initial encounter; S80.12XA Contusion of left lower leg, initial encounter; S80.11XA Contusion of right lower leg, initial encounter; F17.290 Nicotine dependence, other tobacco product, uncomplicated; Z79.891 Long term (current) use of opiate analgesic; Z79.899 Other long term (current) drug therapy; V19.9XXA Pedal cyclist (driver) (passenger) injured in unspecified traffic accident, initial encounter
CPT/HCPCS: 73120; 73590; 99283-25; A9270

== ENCOUNTER 2024-07-10 12:59 | Emergency (ER) | payer OTHER ==
[~2024-07-10] VITALS: Ht 182.9 cm; Wt 95.2 kg
[2024-07-10 13:31] VITALS: BP 116/85
[2024-07-10] MEDS ORDERED: IBUP800 PO (13:34)
== END 2024-07-10 13:57 | disposition home or self-care (01) ==
LOC: ER 12:59
DX: S60.512A Abrasion of left hand, initial encounter (principal); S60.511A Abrasion of right hand, initial encounter; F17.200 Nicotine dependence, unspecified, uncomplicated; V89.1XXA Person injured in unspecified nonmotor-vehicle accident, nontraffic, initial encounter; Z79.899 Other long term (current) drug therapy
CPT/HCPCS: 99284

== ENCOUNTER 2024-07-11 23:09 | Emergency (ER) | payer OTHER ==
[~2024-07-11] VITALS: Ht 182.9 cm; Wt 93.0 kg
[2024-07-12 02:30] VITALS: BP 128/72
[2024-07-12] MEDS ORDERED: Lidocaine 4% 1 Patch TOP ONE (02:30)
[2024-07-12] MEDS ORDERED: FentaNYL Citrate 50 MCG/ML 2 ML Injection IV PRN (02:35)
[2024-07-12] MEDS ORDERED: LIDO700A20 TOP (02:42)
== END 2024-07-12 02:57 | disposition home or self-care (01) ==
LOC: ER 23:09
DX: R07.89 Other chest pain (principal); T73.0XXA Starvation, initial encounter; F17.290 Nicotine dependence, other tobacco product, uncomplicated; G47.00 Insomnia, unspecified; Z59.00 Homelessness unspecified; Z79.899 Other long term (current) drug therapy
CPT/HCPCS: 93005; 93010; 99283-25; A9270

== ENCOUNTER 2024-07-12 16:24 | Emergency (ER) | payer OTHER ==
[~2024-07-12] VITALS: Ht 170.2 cm; Wt 81.7 kg
[~2024-07-12 16:24] MED LIST changes: +LIDO700A20 TOP
[2024-07-12 16:37] VITALS: BP 102/73
[2024-07-12] MEDS ORDERED: Acetaminophen 500 MG Tab PO ONE (17:25)
[2024-07-12] MEDS ORDERED: Ketorolac Tromethamine 30mg Vial IM ONE (17:25)
== END 2024-07-12 17:43 | disposition home or self-care (01) ==
LOC: ER 16:24
DX: R07.89 Other chest pain (principal); V13.9XXA Unspecified pedal cyclist injured in collision with car, pick-up truck or van in traffic accident, initial encounter; F17.200 Nicotine dependence, unspecified, uncomplicated
CPT/HCPCS: 71046; 96372; 99283-25; A9270; J1885

== ENCOUNTER 2024-07-24 11:12 | Emergency (ER) | payer OTHER ==
[~2024-07-24] VITALS: Ht 182.9 cm; Wt 90.7 kg
[2024-07-24 11:45] VITALS: BP 126/73
[2024-07-24] MEDS ORDERED: CEPH500 PO (11:50)
[2024-07-24] MEDS ORDERED: Ibuprofen600 MG PO (11:54)
[2024-07-24] MEDS ORDERED: TraMADol HCl 50 MG Tab PO ONE (11:55)
[2024-07-24] MEDS ORDERED: CATAPRES0.2 M1 PO (21:48)
== END 2024-07-24 11:54 | disposition home or self-care (01) ==
LOC: ER 11:12
DX: L08.9 Local infection of the skin and subcutaneous tissue, unspecified (principal); R40.0 Somnolence; F17.200 Nicotine dependence, unspecified, uncomplicated; Z79.891 Long term (current) use of opiate analgesic; Z79.899 Other long term (current) drug therapy; Z59.89 Other problems related to housing and economic circumstances
CPT/HCPCS: 99283; A9270

== ENCOUNTER 2024-07-24 21:26 | Emergency (ER) | payer OTHER ==
[~2024-07-24] VITALS: Ht 182.9 cm; Wt 99.8 kg
[~2024-07-24 21:26] MED LIST changes: +Ibuprofen600 MG PO
[2024-07-24 21:30] VITALS: BP 149/88
[2024-07-24] MEDS ORDERED: CATAPRES0.2 M1 PO (21:48)
[2024-07-24] MEDS ORDERED: Ketorolac Tromethamine 15mg Vial IM ONE (21:50)
[2024-07-24] MEDS ORDERED: Ketorolac Tromethamine 15mg Vial IV ONE (21:50)
== END 2024-07-24 23:53 | disposition home or self-care (01) ==
LOC: ER 21:26
DX: R07.9 Chest pain, unspecified (principal); Z76.0 Encounter for issue of repeat prescription; M54.9 Dorsalgia, unspecified; Z79.2 Long term (current) use of antibiotics; F17.290 Nicotine dependence, other tobacco product, uncomplicated
CPT/HCPCS: 93005; 93010; 96374; 99284-25; J1885

== ENCOUNTER 2024-08-10 12:20 | Emergency (ER) | payer OTHER ==
[~2024-08-10] VITALS: Ht 182.9 cm; Wt 106.6 kg
[2024-08-10 12:22] VITALS: BP 114/86
[2024-08-10] MEDS ORDERED: Methadone HCL 10 MG TAB PO ONE (13:00)
== END 2024-08-10 13:33 | disposition home or self-care (01) ==
LOC: ER 12:20
DX: F11.90 Opioid use, unspecified, uncomplicated (principal); Z76.0 Encounter for issue of repeat prescription; Z79.2 Long term (current) use of antibiotics; Z79.899 Other long term (current) drug therapy; F17.290 Nicotine dependence, other tobacco product, uncomplicated
CPT/HCPCS: 99281; A9270

== ENCOUNTER 2024-08-11 09:36 | Emergency (ER) | payer OTHER ==
[~2024-08-11] VITALS: Ht 182.9 cm; Wt 72.6 kg
[2024-08-11] MEDS ORDERED: Methadone HCL 10 MG TAB PO ONE (10:05)
[2024-08-11 10:36] VITALS: BP 118/66
== END 2024-08-11 10:41 | disposition home or self-care (01) ==
LOC: ER 09:36
DX: Z76.89 Persons encountering health services in other specified circumstances (principal); F11.20 Opioid dependence, uncomplicated; F17.290 Nicotine dependence, other tobacco product, uncomplicated; Z79.899 Other long term (current) drug therapy
CPT/HCPCS: 99281; A9270

== ENCOUNTER 2024-08-27 12:58 | Emergency (ER) | payer OTHER ==
[~2024-08-27] VITALS: Ht 182.9 cm; Wt 99.8 kg
[2024-08-27 13:19] VITALS: BP 109/62
[2024-08-27] MEDS ORDERED: Methadone HCL 10 MG TAB PO ONE (14:10)
== END 2024-08-27 14:42 | disposition home or self-care (01) ==
LOC: ER 12:58
DX: F41.9 Anxiety disorder, unspecified (principal); Z76.0 Encounter for issue of repeat prescription; S00.31XA Abrasion of nose, initial encounter; X58.XXXA Exposure to other specified factors, initial encounter; Z79.899 Other long term (current) drug therapy
CPT/HCPCS: 99281; A9270

== ENCOUNTER 2024-11-24 15:17 | Emergency (ER) | payer OTHER ==
[~2024-11-24] VITALS: Ht 182.9 cm; Wt 79.4 kg
[2024-11-24 15:48] VITALS: BP 137/99
== END 2024-11-24 16:20 | disposition home or self-care (01) ==
LOC: ER 15:17
DX: F41.9 Anxiety disorder, unspecified (principal); Z76.0 Encounter for issue of repeat prescription; G47.00 Insomnia, unspecified; F17.290 Nicotine dependence, other tobacco product, uncomplicated; Z79.899 Other long term (current) drug therapy
CPT/HCPCS: 99281; A9270

== ENCOUNTER 2024-11-25 13:28 | Emergency (ER) | payer OTHER ==
[~2024-11-25] VITALS: Ht 182.9 cm; Wt 97.5 kg
[2024-11-25 14:05] VITALS: BP 132/78
== END 2024-11-25 15:00 | disposition home or self-care (01) ==
LOC: ER 13:28
DX: Z76.0 Encounter for issue of repeat prescription (principal); F17.290 Nicotine dependence, other tobacco product, uncomplicated; G47.00 Insomnia, unspecified; Z79.899 Other long term (current) drug therapy
CPT/HCPCS: 99281; A9270

== ENCOUNTER 2024-11-30 12:50 | Emergency (ER) | payer OTHER ==
[~2024-11-30] VITALS: Ht 175.3 cm; Wt 108.9 kg
[2024-11-30 13:22] VITALS: BP 165/85
== END 2024-11-30 14:04 | disposition home or self-care (01) ==
LOC: ER 12:50
DX: Z76.0 Encounter for issue of repeat prescription (principal); F17.200 Nicotine dependence, unspecified, uncomplicated; Z79.899 Other long term (current) drug therapy
CPT/HCPCS: 99281; A9270

== ENCOUNTER 2024-12-01 10:15 | Emergency (ER) | payer OTHER ==
[~2024-12-01] VITALS: Ht 182.9 cm; Wt 95.2 kg
[2024-12-01 10:46] VITALS: BP 106/73
== END 2024-12-01 11:31 | disposition home or self-care (01) ==
LOC: ER 10:15
DX: Z76.89 Persons encountering health services in other specified circumstances (principal); F11.91 Opioid use, unspecified, in remission; F17.290 Nicotine dependence, other tobacco product, uncomplicated; Z79.899 Other long term (current) drug therapy
CPT/HCPCS: 99281; A9270

== ENCOUNTER 2024-12-24 11:56 | Emergency (ER) | payer OTHER ==
[~2024-12-24] VITALS: Ht 182.9 cm; Wt 99.8 kg
[2024-12-24 13:01] VITALS: BP 130/90
== END 2024-12-24 13:04 | disposition home or self-care (01) ==
LOC: ER 11:56
DX: F11.90 Opioid use, unspecified, uncomplicated (principal); Z76.0 Encounter for issue of repeat prescription; F41.9 Anxiety disorder, unspecified; Z79.899 Other long term (current) drug therapy; Z79.2 Long term (current) use of antibiotics; F17.290 Nicotine dependence, other tobacco product, uncomplicated; Z59.89 Other problems related to housing and economic circumstances
CPT/HCPCS: 99281

== ENCOUNTER 2025-01-17 09:55 | Emergency (ER) | payer OTHER ==
[~2025-01-17] VITALS: Ht 182.9 cm; Wt 102.1 kg
[2025-01-17] MEDS ORDERED: CATAPRES0.2 M1 PO ×2 (10:22→10:59)
[2025-01-17] MEDS ORDERED: CEPH500 PO ×2 (10:22→10:59)
[2025-01-17 10:56] VITALS: BP 128/81
== END 2025-01-17 10:59 | disposition home or self-care (01) ==
LOC: ER 09:55
DX: F41.9 Anxiety disorder, unspecified (principal); L03.114 Cellulitis of left upper limb; L03.113 Cellulitis of right upper limb; L03.119 Cellulitis of unspecified part of limb; Z79.2 Long term (current) use of antibiotics; Z79.899 Other long term (current) drug therapy
CPT/HCPCS: 99283

== ENCOUNTER 2025-01-26 19:41 | Emergency (ER) | payer OTHER ==
[~2025-01-26] VITALS: Ht 182.9 cm; Wt 97.5 kg
[2025-01-26 20:20] VITALS: BP 144/101
[2025-01-26] MEDS ORDERED: BACTRIM DS TAB1 EAC1 PO (21:29)
[2025-01-26] MEDS ORDERED: Trimethoprim/Sulfamethoxazole DS Tab PO ONE (21:30)
== END 2025-01-26 21:48 | disposition home or self-care (01) ==
LOC: ER 19:41
DX: R21 Rash and other nonspecific skin eruption (principal); Z79.899 Other long term (current) drug therapy
CPT/HCPCS: 99283; A9270

== ENCOUNTER 2025-01-29 12:59 | Emergency (ER) | payer OTHER ==
[~2025-01-29] VITALS: Ht 172.7 cm; Wt 74.8 kg
[2025-01-29 13:04] VITALS: BP 129/87
== END 2025-01-29 14:04 | disposition home or self-care (01) ==
LOC: ER 12:59
DX: Z76.89 Persons encountering health services in other specified circumstances (principal); F11.21 Opioid dependence, in remission; R11.0 Nausea; F17.200 Nicotine dependence, unspecified, uncomplicated
CPT/HCPCS: 99283; A9270

== ENCOUNTER 2025-02-15 11:35 | Emergency (ER) | payer OTHER ==
[~2025-02-15] VITALS: Ht 180.3 cm; Wt 97.5 kg
[2025-02-15 11:45] VITALS: BP 119/76
== END 2025-02-15 12:02 | disposition home or self-care (01) ==
LOC: ER 11:35
DX: F11.90 Opioid use, unspecified, uncomplicated (principal); Z76.0 Encounter for issue of repeat prescription; G47.00 Insomnia, unspecified; F17.290 Nicotine dependence, other tobacco product, uncomplicated; Z79.899 Other long term (current) drug therapy
CPT/HCPCS: 99281; A9270

== ENCOUNTER 2025-02-16 14:44 | Emergency (ER) | payer OTHER ==
[~2025-02-16] VITALS: Ht 182.9 cm; Wt 95.2 kg
[2025-02-16 15:44] VITALS: BP 105/64
== END 2025-02-16 16:17 | disposition home or self-care (01) ==
LOC: ER 14:44
DX: F11.20 Opioid dependence, uncomplicated (principal); Z76.89 Persons encountering health services in other specified circumstances; F17.290 Nicotine dependence, other tobacco product, uncomplicated; Z79.899 Other long term (current) drug therapy
CPT/HCPCS: 99281; A9270

== ENCOUNTER 2025-03-01 00:02 | Emergency (ER) | payer OTHER ==
[~2025-03-01] VITALS: Ht 182.9 cm; Wt 117.9 kg
[2025-03-01 02:09] VITALS: BP 118/88
== END 2025-03-01 05:12 | disposition home or self-care (01) ==
LOC: ER 00:02
DX: F41.9 Anxiety disorder, unspecified (principal); F17.290 Nicotine dependence, other tobacco product, uncomplicated; Z79.891 Long term (current) use of opiate analgesic; Z79.899 Other long term (current) drug therapy; Z59.89 Other problems related to housing and economic circumstances
CPT/HCPCS: 99283

== ENCOUNTER 2025-03-11 05:43 | Emergency (ER) | payer OTHER ==
[~2025-03-11] VITALS: Ht 182.9 cm; Wt 90.7 kg
[2025-03-11] MEDS ORDERED: QUET300 PO (07:05)
[2025-03-11] MEDS ORDERED: CATAPRES0.2 M1 PO (07:05)
[2025-03-11 07:25] VITALS: BP 165/93
== END 2025-03-11 07:27 | disposition home or self-care (01) ==
LOC: ER 05:43
DX: Z76.0 Encounter for issue of repeat prescription (principal); F31.9 Bipolar disorder, unspecified; F41.9 Anxiety disorder, unspecified; F17.290 Nicotine dependence, other tobacco product, uncomplicated; Z79.899 Other long term (current) drug therapy
CPT/HCPCS: 99281

== ENCOUNTER 2025-03-21 18:44 | Emergency (ER) | payer OTHER ==
[~2025-03-21] VITALS: Ht 188 cm; Wt 95.2 kg
[2025-03-21 19:05] VITALS: BP 107/89
== END 2025-03-21 22:55 | disposition home or self-care (01) ==
LOC: ER 18:44
DX: Z76.0 Encounter for issue of repeat prescription (principal); F17.200 Nicotine dependence, unspecified, uncomplicated; Z79.891 Long term (current) use of opiate analgesic; Z79.899 Other long term (current) drug therapy
CPT/HCPCS: 99281